=== PATIENT | male | born 1935 | race Caucasian/White ===

== ENCOUNTER → 2019-12-26 | Outpatient (CLI) | payer OTHER, BC ==
[~2019-12-26] MED LIST: ALEVE220 M1 PO; APAP500; ASPIRIN81 M2 PO; DILTIAZEM ER120 M1 PO; FENTANYL PA12 MCG/HR TP; GLUCOPHAGE1000 MG PO; IMDUR 60 MG TAB60 M1 PO; LANTUS SUBQ; LIPITOR10 MG PO; LYRICA 75 MG CA75 MG PO; NABUMETONE 500500 M1 PO; NOVOLOG100 UNIT/1 SQ; PLAVIX 75 MG TA75 M1 PO; ROXICODONE5 MG PO
== END ==
LOC: SJCVC 10:31
DX: I44.0 Atrioventricular block, first degree (principal); I25.810 Atherosclerosis of coronary artery bypass graft(s) without angina pectoris; E78.00 Pure hypercholesterolemia, unspecified; I10 Essential (primary) hypertension; I25.5 Ischemic cardiomyopathy; E11.9 Type 2 diabetes mellitus without complications; E78.5 Hyperlipidemia, unspecified; R60.9 Edema, unspecified; Z79.4 Long term (current) use of insulin; Z95.1 Presence of aortocoronary bypass graft; Z87.891 Personal history of nicotine dependence

== ENCOUNTER → 2020-01-08 | Outpatient (CLI) | payer OTHER, BC | LOC: SJCVCIMAG 13:12 | DX: I44.0 Atrioventricular block, first degree (principal); I25.10 Atherosclerotic heart disease of native coronary artery without angina pectoris; I42.9 Cardiomyopathy, unspecified; I10 Essential (primary) hypertension; E78.5 Hyperlipidemia, unspecified; E11.9 Type 2 diabetes mellitus without complications; Z79.4 Long term (current) use of insulin; Z87.891 Personal history of nicotine dependence; Z79.82 Long term (current) use of aspirin; Z79.899 Other long term (current) drug therapy ==

== ENCOUNTER → 2020-04-10 | Outpatient (CLI) | payer OTHER, BC | LOC: SJCVC 11:41 | DX: I44.0 Atrioventricular block, first degree (principal); I25.708 Atherosclerosis of coronary artery bypass graft(s), unspecified, with other forms of angina pectoris; E78.00 Pure hypercholesterolemia, unspecified; I25.5 Ischemic cardiomyopathy; R60.9 Edema, unspecified; I10 Essential (primary) hypertension ==

== ENCOUNTER 2020-05-29 00:55 | Inpatient (IN) | payer OTHER, BC ==
[~2020-05-29] VITALS: Ht 172.7 cm; Wt 92.9 kg
[2020-05-29 00:59] VITALS: BP 113/46
--- NOTE | 2020-05-29 01:40 | NUR ---
DIRECT ADMIT FROM [facility] IN [place]. PT PRESENTED WITH RECENT SYNCOPAL EPISODE, WEAKNESS, CHEST PAIN ON 05/27/20, INTERMITTENT FEVERS. TROPONIN ELEVATED AND WBC ELEVATED FROM [facility]. PT TRANSFERRED TO THE MEDICAL CENTER FOR CONTINUED CARE BY BENEFITS CLERK DR BE. PT LIVES AT HOME WITH OF A YEAR AND A HALF. PT REPORTED HX OF DEPRESSION ANXIETY NIGHTMARES, RELATED TO SERVICE IN [employer]. MEDICAL HX LEUKEMIA, HTN, GERDS, NEUROPATHY, CARDIAC SURGERY. AOX4, INDEPENDENT STEADY GAIT, LUNGS DIMINISHED. PT HAD CT HEAD AND ABD AND CHEST XRAY. PT RECEIVED 500MLS NS AT [facility]. PT ALSO HAD COVID NASAL SWAB DONE AT [facility]. PT VERBALIZED WILL CALL FOR ASSIST WITH AMBULATION.
[2020-05-29 01:46] VITALS: BP 108/44
[2020-05-29 01:47] VITALS: BP 95/46
[2020-05-29 02:10] LABS: CHOLESTEROL 94 mg/dL (<200); HDL CHOLESTEROL 22 mg/dL (>40); LDL CHOLESTEROL 58 mg/dL (<100); TC:HDL 4.3 Ratio (Not establshd); TRIGLYCERIDE 72 mg/dL (<150); VLDL 14 mg/dL (<40)
[2020-05-29 02:14] LABS: SERUM ASSESSMENT Clear
[2020-05-29] MEDS ORDERED: LEXAPRO20 MG PO (02:26)
[2020-05-29] MEDS ORDERED: LOSARTAN POTASSIUM PO (02:28)
[2020-05-29] MEDS ORDERED: VITAMIN D31250 MC1 PO (02:29)
--- NOTE | 2020-05-29 05:51 | NUR ---
CLARIFIED WITH PROVIDER WAITING ON COVID RESULTS FROM [facility] REPEAT TEST NOT NEEDED AT THIS TIME.
[2020-05-29 08:11] VITALS: BP 1430/49
[2020-05-29 08:12] LABS: URINE BILIRUBIN NEGATIVE (Negative); URINE BLOOD 2+ (Negative); URINE CLARITY CLOUDY; URINE COLOR YELLOW; URINE GLUCOSE-RANDOM* NEGATIVE (Negative); URINE KETONES NEGATIVE (Negative); URINE PROTEIN (DIPSTICK) 1+ (Negative); URINE SPECIFIC GRAVITY 1.015 (1.005-1.035); URINE UROBILINOGEN 0.2 E.U./dl (0.2-1.0)
[2020-05-29 08:24] LABS: URINE LEUKOCYTES-REFLEX 1+ (Negative); URINE NITRITE-REFLEX POSITIVE (Negative)
[2020-05-29 08:48] LABS: CASTS None Seen /LPF (None Seen); SQUAMOUS 0-3 Few /LPF (0-3)
[2020-05-29 08:49] LABS: AMORPHOUS URATES Moderate /LPF (None Seen); BACTERIA-REFLEX >30 Many /HPF (None Seen); URINE WBC-REFLEX >25 Many /HPF (0-5)
[2020-05-29 09:58] LABS: HEMATOCRIT 28.2 % (42.0-52.0); HEMOGLOBIN 9.4 gm/dL (14.0-18.0); MCH 33.8 pg (26.0-34.0); MCHC 33.4 g/dL (28.0-37.0); MCV 101.2 fL (80.0-100.0); RBC 2.79 mil/uL (4.50-6.00); RDW 16.5 % (10.5-14.5); WBC 35.5 thou/uL (4.0-11.0)
[2020-05-29 10:07] LABS: CALCIUM 8.1 mg/dL (8.5-10.1); CREATININE 1.2 mg/dL (0.7-1.3); POTASSIUM 4.7 mmol/L (3.5-5.1)
[2020-05-29 10:59] LABS: ABSOLUTE NEUTROPHILS 2.8 thou/uL (1.4-8.2); ATYPICAL LYMPHS 2 %; PLATELET COUNT 54 thou/uL (150-400)
--- NOTE | 2020-05-29 10:59 | EKG ---
[facility] Royce Kruger [facility] [address] ELECTROCARDIOGRAM REPORT Name: ELIZA LOERA Room #: 350-P ADM IN M.R.#: [id number] Admission: 05/29/20 Attend Phys: Rey Garzon MD Discharge: Date of : 39 Report #: [id number] THIS REPORT FOR: cc: Damion Castillo MD, Bradley MD Couchonnal, Luis F. MD ~ THIS REPORT FOR: //name// [facility] Test Date: 2020-05-29 Test Time: 08:45:48 Pat Name: ELIZA LOERA Department: Room: 350 P Gender: M Packing Clerk: VANESSA : 1935 Requested By: Gilma Dudley Order Number: [id number] MD: Juanpablo Gudino Measurements Intervals [place] Rate: 63 P: 66 CT: 225 QRS: 1 QRSD: 111 T: -5 QT: 440 QTc: 451 Interpretive Statements Sinus rhythm Prolonged CT interval Borderline T abnormalities, inferior leads No previous ECG available for comparison Electronically Signed On 05-29-2020 10:59:19 CDT by Juanpablo Gudino [email or web address] <ELECTRONICALLY SIGNED> By: Juanpablo Gudino MD 05/29/20 1059 0845 0845 Juanpablo Gudino MD /EPI
--- NOTE | 2020-05-29 12:12 | NUR ---
ASSUMED CARE APPROX 0700. PT ALERT AND ORIENTED X4. ASSESSMENT CHARTED AND VSS. PT REPORTED INTERMITTENT CHEST PAIN THIS AM. REPORTS RELIEF AFTER ONE DOSE OF NITROLYCERIN. SR/1DEGREE ON TELE MONITOR. ON ROOM AIR.
--- NOTE | 2020-05-29 16:52 | NUR ---
INITIAL ASSESSMENT: Received consult. SW reviewed chart and spoke with nursing and attending physician. Pt was transferred to [facility] from [facility]. Pt placed in Enhanced Isolation to r/o COVID-19. Pt's test is negative. SW spoke with pt via phone. Introduced role of SW. Pt is alert/orientated x 4. Pt reports he lives at home in a ground level apt with his . Prior to admission, pt was independent with ADLs. Pt does have a cane, but does not use it. No hx of services or post-acute placement. Pt's PCP is Dr. Damion Castillo. Pt's rough rounder is Dr. Reyes. Pt's goal is to return home when medically stable. SW is following to assist as needed with discharge planning.
[2020-05-29 19:16] VITALS: BP 116/31
[2020-05-29 23:37] LABS: ABSOLUTE RETIC COUNT 0.0246 10^6/uL; OBSERVED RETIC COUNT 0.96 % (0.6-2.6)
[2020-05-29 23:48] LABS: APTT 38.6 Seconds (24.5-32.8); INR 1.1; PROTIME 11.2 Seconds (9.3-11.4)
[2020-05-29 23:50] LABS: % SATURATION 5 % (20-39); IRON 12 ug/dL (65-175); TIBC 226 ug/dL (250-450)
[2020-05-29 23:57] VITALS: BP 118/78
[2020-05-30 00:05] LABS: ALBUMIN 2.7 g/dL (3.4-5.0); DIRECT BILIRUBIN 0.1 mg/dL (<0.1-0.2); TOTAL BILIRUBIN 0.5 mg/dL (0.2-1.0); TOTAL PROTEIN 5.3 g/dL (6.4-8.2)
[2020-05-30 00:06] LABS: GLYCOHEMOGLOBIN (HGB A1C) 6.4 % (4.8-5.6)
[2020-05-30 00:40] LABS: FERRITIN < 1.0 ng/mL (26-388); FOLIC ACID 8.2 ng/mL (8.6-58.9)
[2020-05-30 03:58] VITALS: BP 136/72
--- NOTE | 2020-05-30 04:12 | NUR ---
Patient making slow progress towards outcome goals. Febrile,, treated with Tylenol with some relief. Blood cultures done. IVfluids infusing. Zosyn started. COVID negative x2, Dr Zack Osman aware. Oxygenation optimal on roomair.
[2020-05-30 05:52] LABS: HEMATOCRIT 28.5 % (42.0-52.0); HEMOGLOBIN 9.5 gm/dL (14.0-18.0); MCH 33.3 pg (26.0-34.0); MCHC 33.3 g/dL (28.0-37.0); MCV 100.1 fL (80.0-100.0); PLATELET COUNT 59 thou/uL (150-400); RBC 2.85 mil/uL (4.50-6.00); RDW 16.5 % (10.5-14.5); WBC 39.2 thou/uL (4.0-11.0)
[2020-05-30 06:02] LABS: CALCIUM 8.1 mg/dL (8.5-10.1); CREATININE 1.3 mg/dL (0.7-1.3); MAGNESIUM 1.9 mg/dL (1.8-2.4); POTASSIUM 4.6 mmol/L (3.5-5.1); TROPONIN-I 0.12 ng/mL (<0.06)
[2020-05-30 07:00] VITALS: BP 127/56
[2020-05-30 08:13] LABS: ABSOLUTE NEUTROPHILS 2.7 thou/uL (1.4-8.2)
[2020-05-30 08:14] LABS: PLATELET ESTIMATE DECREASED
--- NOTE | 2020-05-30 11:15 | 2DMMODE ---
[facility] [address] [place] [address] 2 D/M-MODE ECHOCARDIOGRAM Name: ELIZA LOERA Nani Room #: 350-P ADM IN M.R.#: [id number] Admission: 05/29/20 Attend Phys: Rey Garzon MD Discharge: Date of : 37 Report #: [id number] THIS REPORT FOR: cc: Damion Castillo MD, Bradley MD Lammoglia, Francisco J. MD ~ APPROVED REPORT Study performed: 05/30/2020 10:22:17 EXAM: Comprehensive 2D, Doppler, and color-flow Echocardiogram Patient Location: Bedside Room #: 350 Status: routine BSA: 2.04 HR: 60 bpm BP: 127/56 mmHg Rhythm: NSR Other Information Study Quality: Good Indications Syncope, elevated troponin. 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 2D Dimensions RVDd: 44.62 mm IVSd: 10.11 (7-11mm) LVOT Diam: 20.52 (18-24mm) LVDd: 57.42 mm PWd: 9.91 (7-11mm) Ascending Ao: 33.69 (22-36mm) LVDs: 43.08 (25-40mm) Aortic Root: 32.18 mm Volumes Left Atrial Volume (Systole) Single Plane 4CH: 74.07 mL Single Plane 2CH: 76.67 mL LA ESV Index: 42.00 mL/m2 Aortic Valve AoV Peak Сергей.: 2.19 m/s AO Peak Gr.: 19.24 mmHg LVOT Max P.45 mmHg AO Mean Gr.: 11.04 mmHg AO V2 Mean: 1.58 m/s LVOT Max V: 1.05 m/s [facility] [address] [place] [address] 2 D/M-MODE ECHOCARDIOGRAM Name: EVARISTOELIZA L Room #: 350-[facility] IN [facility].#: [id number] Admission: 05/29/20 Attend Phys: Rey Garzon, Discharge: Date of : 37 Report #: [id number] AO V2 VTI: 58.30 cm VERONICA Vmax: 1.59 cm2 Mitral Valve E/A Ratio: 1.8 MV Decel. Time: 154.64 ms MV E Max Сергей.: 1.34 m/s MV A Сергей.: 0.74 m/s MV PHT: 44.85 ms IVRT: 55.36 ms Pulmonary Valve PV Peak Сергей.: 1.42 m/s PV Peak Gr.: 8.08 mmHg Pulmonary Vein P Vein S: 0.56 m/s P Vein D: 0.92 m/s P Vein S/D Ratio: 0.61 Tricuspid Valve TR Peak Сергей.: 2.93 m/s RAP Estimate: 5.00 mmHg TR Peak Gr.: 34.23 mmHg PA Pressure: 39.00 mmHg Left Ventricle The left ventricle is normal size. There is normal left ventricular wall thickness. Left ventricular systolic function is low normal. LVEF is 50%. Right Ventricle Right ventricle is mildly dilated. The right ventricular systolic function is normal. Atria Left atrium is moderately dilated. Right atrium is moderately dilated. Aortic Valve The aortic valve is normal in structure. Leaflets are mildly thickened and calcified. Trace aortic regurgitation. There is mild valvular aortic stenosis. Calculated aortic valve area is 1.6 cm2 with maximum pressure gradient of 19 mmHg and mean pressure gradient of 11 mmHg. Mitral Valve The mitral valve is normal in structure. Mild mitral regurgitation. [facility] [address] [place] [address] 2 D/M-MODE ECHOCARDIOGRAM Name: ELIZA LOERA Room #: 350-P [facility] IN ..#: [id number] Admission: 05/29/20 Attend Phys: Rey Garzon, Discharge: Date of : 37 Report #: [id number] No evidence of mitral valve stenosis. Tricuspid Valve The tricuspid valve is normal in structure. Mild to moderate tricuspid regurgitation. Estimated PAP is 40mmHg. Pulmonic Valve The pulmonary valve is normal in structure. Mild pulmonic regurgitation. Great Vessels The aortic root is normal in size. The ascending aorta is normal in size. IVC is normal in size and collapses >50% with inspiration. Pericardium There is no pericardial effusion. <Conclusion> The left ventricle is normal size. LVEF is 50%. Right ventricle is mildly dilated. Left atrium is moderately dilated. Right atrium is moderately dilated. The aortic valve is normal in structure. Leaflets are mildly thickened and calcified. Trace aortic regurgitation. There is mild valvular aortic stenosis. Calculated aortic valve area is 1.6 cm2 with maximum pressure gradient of 19 mmHg and mean pressure gradient of 11 mmHg. The mitral valve is normal in structure. Mild mitral regurgitation. The tricuspid valve is normal in structure. Mild to moderate tricuspid regurgitation. Estimated PAP is 40mmHg. The pulmonary valve is normal in structure. Mild pulmonic regurgitation. There is no pericardial effusion. <ELECTRONICALLY SIGNED> By: Yan Nick MD 05/30/20 1115 1115 1115 Yan Nick MD /INF
--- NOTE | 2020-05-30 14:39 | NUR ---
SW reviewed chart and spoke with attending physician. Pt has had two negative COVID-19 test. Pt to transfer to med/surg level of care when a bed is available. GI consulted due to anemia. Pt to have colonoscopy on Tuesday, per chart. SW requested therapy to be ordered to evaluate pt for discharge needs. LD is following to assist as needed with discharge planning.
[2020-05-30 16:11] VITALS: BP 118/49
--- NOTE | 2020-05-30 19:41 | NUR ---
Pt transfered to unit per around 1530 in stable condition.Reassessment completed.vss but oanh on telemetry.Pt tolerated dinner.No verbal c/o.Will continue to monitor.
[2020-05-30 20:22] VITALS: BP 127/49
--- NOTE | 2020-05-30 21:37 | HC ---
[facility] [place] [address] CONSULTATION Name: ELIZA LOERA Room #: 460-P ADM IN M.R.#: [id number] Admission: 05/29/20 Attend Phys: Rey Garzon MD Discharge: Date of : 37 Report #: [id number] THIS REPORT FOR: cc: Damion Castillo MD, Bradley MD McKittrick, Richard James MD ~ CC: Damion Burger MD REASON FOR CONSULTATION: CLL, anemia and thrombocytopenia. HISTORY OF PRESENT ILLNESS: The patient is a very pleasant 84-year-old gentleman from [facility], who had about a 2-day history of fever, feeling poorly, nausea, vomiting, then had what appeared to be a syncopal episode at home, was brought rigid to the [facility]'s ER in the community. There was a question about whether he might have gallstones and also chest pain. 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 With regards to his CLL, the patient says he has been aware of this for several years. Dr. Burger, [facility] what sounds like Imbruvica in early 2019, but held once the Coronavirus pandemic began. He seems to think or be aware that his platelets were slightly low. He thinks they may be in about 55-60 range at the ER here. He is not aware of any lymph node enlargement in the past. He has not had any unexplained fevers, chills or sweats until the last 2 days. The patient denies any unusual headache. He does not have any mouth sores, swallowing difficulty. No real more breathing trouble than usual. He is not aware of any lymph nodes or any skin rash. He is not aware of any blood in his urine or stool. They have not been black and tarry. He does not think he has ever had a colonoscopy. He may have had an EGD a number of years ago. His diet, he maybe has red meat such as beef maybe once a week, but is mostly a fish and chicken person. He has not been told that he is iron deficient. He tells me his weight has been stable. PAST MEDICAL AND SURGICAL HISTORY: Notable for the CLL history. Also coronary artery disease, I believe he has had a stent in the past. Also, diabetes mellitus type 2, obstructive sleep apnea. Also, left heel fracture, cataract surgery, retinal surgery. [facility] [address] [place] [address] CONSULTATION Name: ELIZA LOERA Nani Room #: 460-P [facility] IN M.R.#: [id number] Admission: 05/29/20 Attend Phys: Rey Garzon MD Discharge: Date of : 37 Report #: [id number] FAMILY HISTORY: No one with blood disorders. SOCIAL HISTORY: Retired. Past smoker. Minimal to no alcohol. 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 MEDICATIONS: At this time currently include folic acid which I added. He is also on Zosyn 3.375 g IV q. 8, insulin, Lovenox 40 mg at bedtime, losartan 50 mg on hold, diltiazem CD 120 mg on hold, escitalopram 20 mg daily, aspirin enteric coated 81 mg daily, isosorbide mononitrate 60 mg daily, clopidogrel 75 mg daily, famotidine 40 mg daily, insulin on a sliding scale, IV fluids, morphine p.r.n., nitroglycerin p.r.n., MiraLax p.r.n., Tylenol p.r.n. and Zofran p.r.n. PHYSICAL EXAMINATION: GENERAL: The patient appears his stated age. VITAL SIGNS: Height is 5 feet 8 inches, 172.7 cm; weight 204.8 pounds or 92.9 kilograms. T-max here at the hospital is 101.6 yesterday at 7:16. Recent blood pressure 127/56, O2 sats 96%, respirations 16, pulse 54, temperature 98.9. MOOD: He is alert and conversant and pleasant. NEUROLOGIC: Speech and thought pattern appear to be normal. Moving arms and legs in normal manner. LYMPHATICS: No enlarged lymph nodes in the supraclavicular, cervical, axillary or inguinal region. ABDOMEN: Obese. No definite organomegaly. EXTREMITIES: Without clubbing, cyanosis. There may be some trace edema. LABORATORY DATA: Here at the hospital shows a BUN of 29, creatinine of 1.3. Liver functions normal with an AST of 19, ALT of 21, total bilirubin 0.1. Iron 12, low; TIBC 266, low; iron saturation 5%, low; INR 1.1 with protime 11.2; APTT 38.6. White count 39.2; hemoglobin 9.5; MCV 100.1; RDW 16.5, slightly elevated;, platelets 54,000 and 59,000 today, were similar at [facility]. Differential has 2% bands, 5% segmented neutrophils, 92% lymphocytes, no monocytes, 1% eosinophils. Yesterday, they had 2 atypical lymphocytes. Retic count showed absolute retic 0.0246, which is decreased; TSH normal 2.271; ferritin less than 1; folate 8.2, low; vitamin B12 of 263, lower end of normal. UA had 2+ blood, positive for nitrite, had greater than 25 wbc's, greater than 30 or many bacteria. IMAGING: Chest x-ray ordered, ultrasound carotid ordered, abdominal ultrasound ordered. CAT scan from [facility]' ER did not reveal any lymphadenopathy or hepatosplenomegaly. It did raise a question of thickened gallbladder if I recall and also perhaps thickened urinary bladder wall. ASSESSMENT AND PLAN: 1. Chronic lymphocytic leukemia, appears to not be a new diagnosis. Has only needed therapy for a brief while, then was held because of COVID pandemic. Had been on Imbruvica. It sounds like platelets were stable. Will try to get [facility] [address] [place] [address] CONSULTATION Name: EVARISTOELIZA Nani Room #: 460-P [facility] IN M.R.#: [id number] Admission: 05/29/20 Attend Phys: Rey Garzon MD Discharge: Date of : 37 Report #: [id number] records from [facility] and Dr. Reyes's office. 2. Severe iron deficiency anemia. We will arrange for Hemoccult stool. We will consult GI to see what they think of possible future endoscopies. Will also provide IV iron. Defer to others whether to hold or continue clopidogrel at this time. 3. Thrombocytopenia, sounds stable. Coags basically stable. I doubt disseminated intravascular coagulation. APTT slight elevation, probably not clinically significant. No obvious bleeding noted. We will Hemoccult stool. 4. Coronary artery disease with questionable angina. Defer to Cardiology team evaluation. 5. Febrile illness. Dr. Ebenezer Osman will see the patient. Unclear whether source is UA or possible gallbladder. Doubt it is related to chronic lymphocytic leukemia or underlying malignancy. 6. History of diabetes type 2. Management per others. 7. Obstructive sleep apnea history. Management per others. <ELECTRONICALLY SIGNED> By: Fady Rodriguez MD 05/30/20 2137 0839 1052 Fady Rodriguez MD /nt
--- NOTE | 2020-05-31 07:56 | NUR ---
PROGRESS PT A/O X 4 UP AD PAWEL DENIES PAIN ANTIBIOTICS GIVEN ORDERED. SKIN C/D/I PT TOOK SHOWER HAS ADEQAUTE INTAKE AND OUTPUT VSS CONTINUE POC.
[2020-05-31 09:30] VITALS: BP 140/62
[2020-05-31 11:30] LABS: HEMOGLOBIN 9.4 gm/dL (14.0-18.0)
[2020-05-31 11:32] LABS: HEMATOCRIT 28.3 % (42.0-52.0); MCH 33.2 pg (26.0-34.0); MCHC 33.1 g/dL (28.0-37.0); MCV 100.2 fL (80.0-100.0); RBC 2.82 mil/uL (4.50-6.00); RDW 16.5 % (10.5-14.5)
[2020-05-31 11:38] LABS: WBC 46.2 thou/uL (4.0-11.0)
[2020-05-31 11:50] LABS: CALCIUM 7.9 mg/dL (8.5-10.1); CREATININE 1.1 mg/dL (0.7-1.3); MAGNESIUM 2.1 mg/dL (1.8-2.4); POTASSIUM 3.8 mmol/L (3.5-5.1); TOTAL BILIRUBIN 0.5 mg/dL (0.2-1.0)
[2020-05-31 16:17] VITALS: BP 108/51
--- NOTE | 2020-05-31 16:19 | NUR ---
Assumed care of pt. at 0700. Pt. has presented with sinus bradycardia the majority of the shift. When he began to lay down and nap in the afternoon his HR dropped to 47 and the physician was notified, no orders received. Pt. was not in distress and all other vitals were WNL. Fall precautions are in place. Pt. critical value of WBC 42.6 was reported at 1139 and reported to physician, no orders received. Pt. complains of decreased energy but remains active and mobile when possible. Pt. has not been in pain for the duration of the shift.
[2020-05-31 17:55] VITALS: BP 144/65
[2020-05-31 20:00] VITALS: BP 125/52
--- NOTE | 2020-06-01 04:03 | NUR ---
ASSUMED CARE OF PT AT 1900HRS. PT AOX4 AND LETS NEEDS BE KNOWN. PT DENIED PAIN, NAUSEA OR SOA. ASSESMENT CHARTED. ABX TREATMENT CONTINUED. PT WAS ABLE TO GET COMFORTABLE AND SLEEP PART OF THE SHIFT. VSS AND NO S/S OF ACUTE DISTRESS. WILL CONTINUE TO MONTIOR FOR CHANGES.
[2020-06-01 04:22] VITALS: BP 130/49
[2020-06-01 05:44] LABS: HEMATOCRIT 27.5 % (42.0-52.0); HEMOGLOBIN 9.2 gm/dL (14.0-18.0); MCH 33.8 pg (26.0-34.0); MCHC 33.5 g/dL (28.0-37.0); MCV 100.9 fL (80.0-100.0); RBC 2.73 mil/uL (4.50-6.00); RDW 16.8 % (10.5-14.5)
[2020-06-01 05:49] LABS: WBC 42.4 thou/uL (4.0-11.0)
[2020-06-01 05:58] LABS: CALCIUM 7.9 mg/dL (8.5-10.1); POTASSIUM 3.9 mmol/L (3.5-5.1)
[2020-06-01 07:40] VITALS: BP 141/59
--- NOTE | 2020-06-01 11:40 | NUR ---
ASSUMED CARE AT 0700. PT IS ALERT AND ORIENTED. NO COMPLAINTS. VSSA/RA. ON TELE WITH CARDIAC HX AND BRADYCARDIA. CLEAR DIET. TOLERATING. BLOOD SUGARS MONITORED. PIV INFUSING. PT IS UAL, STEADY ON FEET. REFUSES BED ALARM AND ASSISTANCE. EDUCATED PT ON CALLING IF NEEDED AND SAFETY. CALL LIGHT IN REACH. WILL CONTINUE TO MONITOR
[2020-06-01 16:05] VITALS: BP 129/54
[2020-06-01 20:08] VITALS: BP 132/51
--- NOTE | 2020-06-02 02:39 | NUR ---
PATIENT ALERT AND ORIENTED X4. BS MONITORED PER ORDER. PATIENT FINISHED PREP FOR EGD/COLONOSCOPY TODAY. UP TO BATHROOM INDEPENDENTLY. SEVERAL LOOSE STOOLS, NOT CLEAR AT THIS TIME, WILL MONITOR. DENIES PAIN. IVF INFUSING W/O COMPLICATION. PATIENT HAS BEEN NPO SINCE 2358 ON 06/01/2020. RESTING QUIETLY.
[2020-06-02 05:13] LABS: HEMOGLOBIN 8.5 gm/dL (14.0-18.0); RBC 2.58 mil/uL (4.50-6.00)
[2020-06-02 05:14] LABS: MCH 32.9 pg (26.0-34.0); MCHC 32.6 g/dL (28.0-37.0); MCV 101.1 fL (80.0-100.0); RDW 16.6 % (10.5-14.5)
[2020-06-02 05:39] LABS: CREATININE 0.9 mg/dL (0.7-1.3); POTASSIUM 3.3 mmol/L (3.5-5.1)
[2020-06-02 08:42] VITALS: BP 145/63
--- NOTE | 2020-06-02 11:57 | NUR ---
PT TO HAVE EGD AND COLONOSCOPY THIS DAY. CARDIOLOGY MENTIONINED POSSIBLE LOOP RECORDER TO BE IMPLANTED TOMORROW IF OK'D BY FAMILY. CM TO FOLLOW INDICATED WITH DC PLANNING.
--- NOTE | 2020-06-02 14:42 | NUR ---
ASSUMED CARES AT 0700. PT AWAKE, ALERT AND ORIENTED*4. DENIES PAIN. VITALS REMAIN STABLE. BRADYCARDIA ON TELE, HR 50-60'S. PT NPO THIS AM, WENT FOR EGD & COLONOSCOPY, UPON RETURN DENIES N&V AND VITALS REMAIN STABLE. ABLE TO RESUME CARB CONTROL DIET AT LUNCH TIME AND TOLERATED WELL. IV ON RIGHT AC REMAINS INTACT AND PATENT, NS AT 75ML/HR AND ANTIBIOTICS INFUSING ORDERED. UPADLIB. Q1H VISUAL CHECKS. CALL LIGHT WITHIN REACH.
[2020-06-02 15:30] VITALS: BP 118/51
[2020-06-02 19:38] VITALS: BP 132/49
--- NOTE | 2020-06-03 02:31 | NUR ---
ASSESSED AT START OF SHIFT 1900. PT A&OX4 DENIES PAIN, N/V. UP ADLIB IN THE ROOM AND HALLWAY. IV INTACT AND ABX GIVEN. PT RUNS SINUS GUI ON TELE 40-45. NO FURTHER SIGNS OF DISCOMFORT WILL CONT WITH POC TILL EOS
[2020-06-03 05:48] LABS: HEMOGLOBIN 8.3 gm/dL (14.0-18.0)
[2020-06-03 05:51] LABS: HEMATOCRIT 25.5 % (42.0-52.0); MCH 32.9 pg (26.0-34.0); MCHC 32.6 g/dL (28.0-37.0); MCV 101.1 fL (80.0-100.0); RBC 2.52 mil/uL (4.50-6.00); RDW 16.9 % (10.5-14.5)
[2020-06-03 06:25] LABS: WBC 41.8 thou/uL (4.0-11.0)
[2020-06-03 06:35] LABS: CALCIUM 7.6 mg/dL (8.5-10.1); CREATININE 0.9 mg/dL (0.7-1.3); MAGNESIUM 2.1 mg/dL (1.8-2.4); POTASSIUM 3.7 mmol/L (3.5-5.1)
[2020-06-03 07:47] VITALS: BP 122/59
--- NOTE | 2020-06-03 10:34 | NUR ---
Assumed care of pt. at 0700. Pt. is calm and cooperative. Pt. is excited for discharge. Vitals are all WNL and is still SR Bradycardia.
[2020-06-03] MEDS ORDERED: AMOXIL 875 MG875 M1 PO (13:48)
[2020-06-03] MEDS ORDERED: FERROUS SULFAT325 MG PO (13:52)
[2020-06-03 14:24] VITALS: BP 122/59
[2020-06-03 14:32] VITALS: BP 144/69
--- NOTE | 2020-06-03 15:37 | NUR ---
CARE TEAM INDICATED THAT PT IS MEDICALLY STABLE TO DC HOME THIS DAY TO SELF CARE. NO OTHER CM INTERVENTION INDICATED. CASE CLOSED.
--- NOTE | 2020-06-03 16:06 | PATH ---
[facility] [place] [address] PATHOLOGY RPT PROCEDURE Name: ARMANI KAURYOHANNES Cardoza Room #: 460-P [facility] IN M.R.#: [id number] Admission: 05/29/20 Date of : 39 Discharge: 06/03/20 Report #: [id number] Path Case #: [id number] [facility] Accession Number: [id number] . 01 Material submitted: . PART A: duodenum - BX OF DUODENUM PART B: sigmoid colon - POLYP AT SIGMOID COLON X3 . 01 Clinical history: . anemia . 02 Diagnosis: A. Small bowel mucosa, duodenum rule out sprue: - No diagnostic abnormalities present. - Negative for villous blunting or increase in intraepithelial lymphocytes. . B. Polyp x3, sigmoid colon, endoscopic biopsy: - Tubular adenoma. - Negative for high grade dysplasia. . (IUV:mml; 06/03/2020) QL 06/03/2020 1336 Local . 02 Electronically signed: . Mery Brady MD, Pathologist NPI- [id number] . 01 Gross description: . A. The specimen is received in formalin labeled "Eliza Kaur, BX of duodenum to rule out sprue" and consists of 2 fragments of stallings tissue measuring 0.8 x 0.2 x 0.2 cm in aggregate which are entirely submitted in A1. . B. The specimen is received in formalin labeled "Eliza Kaur, polyp at sigmoid colon x3" and consists of multiple polypoid segments of pink-stallings tissue measuring 1.3 x 0.6 x 0.3 cm in aggregate which are entirely submitted in B1. ([facility]; 06/02/2020) DARYLQ/DAV 06/02/2020 2139 Local . 02 Pathologist provided ICD-10: D12.5, D64.9 . 02 CPT . 619733, 712244 Specimen Comment: A courtesy copy of this report has been sent to [phone] [address] PATHOLOGY RPT PROCEDURE Name: ELIZA KAUR Nani Room #: 460-P [facility] IN .R.#: [id number] Admission: 05/29/20 Date of : 39 Discharge: 06/03/20 Report #: [id number] Path Case #: [id number] Specimen Comment: 0827, Specimen Comment: Report sent to ,DR DEMARCO / DR CARVER Specimen Comment: A duplicate report has been generated due to demographic updates. Performed at: [address], [place], [place] [id number] MD Carlin Olivera MD Phone: [phone] Performed at: [address] [id number] MD Mery Brady MD Phone: [phone]
--- NOTE | 2020-06-04 11:50 | P ---
[facility] [place] [address] PROCEDURE REPORT Name: ELIZA LOERA Room #: 460-P [facility] IN ..#: [id number] Admission: 05/29/20 Attend Phys: Rey Garzon MD Discharge: 06/03/20 Date of : 37 Report #: [id number] THIS REPORT FOR: cc: Damion Castillo MD, Bradley MD McElhinney, Christian C. MD ~ CC: Damion Garzon MD DATE OF SERVICE: 06/02/2020 PROCEDURE PERFORMED: Upper endoscopy with biopsies. HISTORY OF PRESENT ILLNESS: The patient is an 84-year-old male with a history of iron deficiency anemia. Stools have been Hemoccult negative x 1. The patient has previously been on aspirin and Plavix. This has been held for the last few days. He also takes PPI therapy on a daily basis. No previous history of colonoscopy, upper endoscopy approximately 20 years ago. Denies any GI symptoms at this time. Plan is for EGD and colonoscopy today. DESCRIPTION OF PROCEDURE: The risks and benefits of the procedure were explained to the patient, those risks including but not limited to bleeding, perforation and the risk of sedation. He understood these risks and gave informed consent. Sedation was given using propofol per anesthesia. Next, using a standard Olympus upper endoscope, the scope was placed in the patient's mouth and advanced under direct vision through the esophagus, stomach and into the second portion of the duodenum. The larynx was normal in appearance. The upper and mid esophagus was normal. In the distal esophagus at the GE junction, grade A mild erosive esophagitis was noted. No evidence of bleeding. Overall, the gastric mucosa was normal. The pylorus was normal and patent. The duodenal bulb, first and second portion were all normal. Biopsies were obtained to rule out the possibility of celiac sprue. The scope was then withdrawn and the procedure terminated. The patient tolerated the procedure well. IMPRESSION: 1. Grade A erosive esophagitis. 2. Otherwise, normal upper endoscopy. RECOMMENDATIONS: 1. Await biopsy results. 2. Recommend b.i.d. PPI therapy. 3. We will proceed with colonoscopy next today. [facility] [address] [place] [address] PROCEDURE REPORT Name: ELIZA LOERA Nani Room #: 460-P [facility] IN .R.#: [id number] Admission: 05/29/20 Attend Phys: Rey Garzon MD Discharge: 06/03/20 Date of : 39 Report #: [id number] Thank you for allowing me to participate in his care. <ELECTRONICALLY SIGNED> By: Romulo Sheppard MD 06/04/20 1150 1139 1146 Romulo Sheppard MD /nt
--- NOTE | 2020-06-04 11:50 | P ---
[facility] [place] [address] PROCEDURE REPORT Name: ELIZA LOERA Room #: 460-P [facility] [place] [place] ..#: [id number] Admission: 05/29/20 Attend Phys: Rey Garzon MD Discharge: 06/03/20 Date of : 39 Report #: [id number] THIS REPORT FOR: cc: Damion Castillo MD, Bradley MD McElhinney, Christian C. MD ~ CC: Damion Garzon MD DATE OF SERVICE: 06/02/2020 PROCEDURE PERFORMED: Colonoscopy with polypectomies. HISTORY OF PRESENT ILLNESS: The patient is an 84-year-old male with iron deficiency anemia, recent generalized weakness. No previous history of colonoscopy. Hemoglobin has been in the 8-1/2-9 range, most recent today at 8.5. He was Hemoccult negative x 1 during this hospital stay. Previous history of aspirin and Plavix, was also on PPI therapy once a day. Upper endoscopy was just performed showing mild grade A erosive esophagitis. No evidence of bleeding. Plan is for colonoscopy next today. DESCRIPTION OF PROCEDURE: The risks and benefits of the procedure were explained to the patient, those risks including but not limited to bleeding, perforation and the risk of sedation. He understood these risks and gave informed consent. Sedation was given using propofol per anesthesia. Next, a digital rectal exam was initially performed, which was normal. Next, using a standard Olympus colonoscope, the scope was placed in the patient's anus and advanced under direct vision to the cecum. The overall prep was good. The cecum and ileocecal valve were normal in appearance. The ascending, transverse and descending colon were normal. Multiple small diverticula were noted in the sigmoid colon. Also noted were 3 polyps, the two larger polyps were 6 and 8 mm, both removed by snare cautery. The smallest polyp was 4 mm and removed by cold forceps. The rectal mucosa was normal. On retroflexion, no abnormalities were noted. The scope was then withdrawn and the procedure terminated. The patient tolerated the procedure well. IMPRESSION: 1. Three colonic polyps. 2. Sigmoid diverticulosis. 3. Otherwise, normal colonoscopy. RECOMMENDATIONS: 1. Await biopsy results. 2. The patient with a history of iron deficiency anemia, Hemoccult negative x [address] [address] PROCEDURE REPORT Name: ELIZA LOERA Nani Room #: 460-P [facility] [place] ..#: [id number] Admission: 05/29/20 Attend Phys: Rey Garzon MD Discharge: 06/03/20 Date of : 39 Report #: [id number] during this hospital stay. There was no evidence of bleeding on exam today on EGD or colonoscopy. The patient did have mild grade A erosive esophagitis. We will therefore increase his PPI therapy to b.i.d. for now, would consider oral iron therapy. If he does not respond to this, consider IV iron therapy in the future. Thank you for allowing me to participate in his care. <ELECTRONICALLY SIGNED> By: Romulo Sheppard MD 06/04/20 1150 1143 1200 Romulo Sheppard MD /nt
--- NOTE | 2020-06-04 15:23 | HC ---
[facility] [place] [address] CONSULTATION Name: ELIZA LOERA Room #: 460-P [facility] IN ..#: [id number] Admission: 05/29/20 Attend Phys: Rey Garzon MD Discharge: 06/03/20 Date of : 39 Report #: [id number] THIS REPORT FOR: cc: Damion Castillo MD, Bradley MD Elia, Manana MD ~ CC: Damion Garzon DATE OF SERVICE: 06/02/2020 SUBJECTIVE: The patient is doing well. He is undergoing iron infusion. Does not have any complaints of shortness of breath, rash. OBJECTIVE: VITAL SIGNS: Blood pressure 111/51, heart rate is 52, temperature 98.8. GENERAL: Alert and oriented x 3. SKIN: No rash. LUNGS: No tachypnea. LABORATORY DATA: White count 45.0, hemoglobin 8.5, platelets 102. ASSESSMENT AND PLAN: 1. Chronic lymphocytic leukemia. Continue followup with Dr. Burger. No indications. No intervention at this point. 2. Anemia, undergoing iron infusion per ____ and tolerating well. <ELECTRONICALLY SIGNED> By: Yoselin Alvarenga MD 06/04/20 1523 [id number] Yoselin Alvarenga MD /nt
== END 2020-06-03 15:44 | disposition home or self-care (01) | DRG 871 ==
LOC: 3W 00:55 → 4W 05-30 15:20
PROVIDERS: Internal Medicine Hematology & Oncology; Nurse Practitioner Adult Health; Nurse Practitioner Family; ADMIT Internal Medicine; ATTEND Internal Medicine
PROC: 0DB98ZX Excision of Duodenum, Via Natural or Artificial Opening Endoscopic, Diagnostic (ICD-10-PCS; principal; 2020-06-02)
PROC: 0DBN8ZZ Excision of Sigmoid Colon, Via Natural or Artificial Opening Endoscopic (ICD-10-PCS; principal; 2020-06-02)
DX: A41.51 Sepsis due to Escherichia coli [E. coli] (principal); E43 Unspecified severe protein-calorie malnutrition; N17.0 Acute kidney failure with tubular necrosis; C91.10 Chronic lymphocytic leukemia of B-cell type not having achieved remission; K22.10 Ulcer of esophagus without bleeding; N39.0 Urinary tract infection, site not specified; K80.20 Calculus of gallbladder without cholecystitis without obstruction; D50.9 Iron deficiency anemia, unspecified; Z20.828 Contact with and (suspected) exposure to other viral communicable diseases; I25.10 Atherosclerotic heart disease of native coronary artery without angina pectoris; G47.33 Obstructive sleep apnea (adult) (pediatric); E11.9 Type 2 diabetes mellitus without complications; D69.6 Thrombocytopenia, unspecified; K63.5 Polyp of colon; K57.30 Diverticulosis of large intestine without perforation or abscess without bleeding; I25.5 Ischemic cardiomyopathy; F41.9 Anxiety disorder, unspecified; E78.00 Pure hypercholesterolemia, unspecified; E78.5 Hyperlipidemia, unspecified; I08.1 Rheumatic disorders of both mitral and tricuspid valves; E53.8 Deficiency of other specified B group vitamins; G47.00 Insomnia, unspecified; E55.9 Vitamin D deficiency, unspecified; I10 Essential (primary) hypertension; E86.0 Dehydration; N40.0 Benign prostatic hyperplasia without lower urinary tract symptoms; Z95.1 Presence of aortocoronary bypass graft; Z79.899 Other long term (current) drug therapy; Z95.5 Presence of coronary angioplasty implant and graft; Z98.49 Cataract extraction status, unspecified eye; Z87.891 Personal history of nicotine dependence; Z82.49 Family history of ischemic heart disease and other diseases of the circulatory system; Z80.0 Family history of malignant neoplasm of digestive organs; Z79.82 Long term (current) use of aspirin; K21.0 Gastro-esophageal reflux disease with esophagitis
CPT/HCPCS: 10045; 10879; 62110; 62900; 70005

== ENCOUNTER → 2020-11-05 | Outpatient (CLI) | payer OTHER, BC ==
[~2020-11-05] VITALS: Ht 172.7 cm; Wt 94.3 kg
[~2020-11-05] MED LIST changes: +AMOXIL 875 MG875 M1 PO; +FERROUS SULFAT325 MG PO; +LEXAPRO20 MG PO; +LOSARTAN POTASSIUM PO; +VITAMIN D31250 MC1 PO
[2020-11-05 08:42] VITALS: BP 117/57
[2020-11-05 08:59] LABS: HEMATOCRIT 34.2 % (42.0-52.0); MCH 33.8 pg (26.0-34.0); MCHC 32.1 g/dL (28.0-37.0); MCV 105.1 fL (80.0-100.0); RBC 3.25 mil/uL (4.50-6.00); RDW 15.5 % (10.5-14.5)
[2020-11-05 09:00] LABS: CALCIUM 8.7 mg/dL (8.5-10.1); POTASSIUM 5.2 mmol/L (3.5-5.1)
[2020-11-05 09:03] LABS: WBC 68.1 thou/uL (4.0-11.0)
--- NOTE | 2020-11-05 11:41 | CATHLAB ---
[facility] [place] [address] INVASIVE PROCEDURE REPORT Name: ELIZA LOERA Room #: REG LESLY MalloyCintiaKirtiCintia#: [id number] Admission: 11/05/20 Attend Phys: Jose Reyes MD, Discharge: Date of : 39 Report #: [id number] THIS REPORT FOR: cc: Damion Castillo MD, Bradley MD Mancuso, Gerald M. MD [facility] ~ APPROVED REPORT Study performed: 11/05/2020 09:31:46 Patient Details Patient Status: Out-Patient Room #: The patient is a 85 year-old male Event Personnel Jose Reyes Pharmacy Informatics Specialist, Maikol Jung RN RN, Trixie Kaba RTR, Anil Dominguez Roberta Monitor Procedures Performed Art Access - R femoral artery* Left Heart Cath Coronaries, Bypass Grafts [id number] LHCCORCABG Aortogram Abdominal Peripheral Angio [id number] 27201 Initial Mod Sed Same Phys/QHP Gr 208237 50689 Mod Sed Same Phys/QHP Ea 555378 Hemostasis w/ Mynx Indication Positive stress test Procedure Narrative The Right Groin^ was infiltrated with 1% Lidocaine subcutaneous anesthesia. A PINNACLE 6FR Sheath #[id number] sheath was inserted into the RFA^. Coronary angiography was performed using coronary diagnostic catheters. The right coronary system was accessed and visualized with a JR4 catheter. The left coronary system was accessed and visualized with a JL4 catheter. The left ventricle was accessed and visualized with a Pigtail catheter. Left ventriculogram was performed in 30 degree projection. Closure device was deployed with a 6 Fr MYNXGRIP 6/7F #[id number]. The patient tolerated the procedure well and there were no complications associated with the procedure. There was no hematoma. Intraoperative Conscious Sedation Sedation start time: 10:00 Case end Time: 10:55 Fentanyl 50 mcg Versed 1 mg [facility] [place] [address] INVASIVE PROCEDURE REPORT Name: ELIZA LOERA Room #: [facility] Nitesh#: [id number] Admission: 11/05/20 Attend Phys: Jose Reyes, Discharge: Date of : 39 Report #: [id number] Fluoro Time: 21.10 minutes Dose: DAP 05439.30 cGycm2 1951 mGy Contrast Type and Amount: Omnipaque 250 ml Hemodynamics The aortic pressure is 120/51 mmHg with a mean of 48 mmHg. The left ventricular pressure is 140/-5 mmHg with a mean of mmHg. The left ventricular end diastolic pressure is 20 mmHg. Conclusion #1. Normal left ventricular size and inferior base is severely hypokinetic EF 50% range. 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 #4 SHAIKH to LAD is widely patent brisk flow there is a jump graft to what I appears to be a diagonal system there is a 50% lesion in the LAD after the anastomosis of the SHAIKH. There is collateral filling to the PDA via the septal perforating system. 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 Filling what appears to be a moderate disease and relatively small circumflex OM system. Recommendations and plan: Continue aggressive risk factor modification. No clear indication for coronary intervention. Would treat him medically. Multiple catheters were tented to cannulate the ARVIN flush injection was adequate although difficult to see distal vasculature. <ELECTRONICALLY SIGNED> By: Jose Reyes MD, [facility] 11/05/20 1141 1141 1141 Jose Reyes MD, FACC /INF
--- NOTE | 2020-11-05 15:35 | EKG ---
[place] [address] [facility] [place] [address] ELECTROCARDIOGRAM REPORT Name: EVARISTOELIZA L Room #: [facility]#: [id number] Admission: 11/05/20 Attend Phys: Jose Reyes MD, Discharge: Date of : 39 Report #: [id number] [facility] Test Date: 2020-11-05 Test Time: 08:43:47 Pat Name: ELIZAYOHANNES LOERA Department: Room: Gender: Bingo Cashier: SBUL : 1935 Requested By: Jose Reyes Order Number: [id number] : Nithin Montoya Measurements Intervals [place] Rate: 60 P: 13 IN: 258 QRS: 10 QRSD: 110 T: 28 QT: 451 QTc: 451 Interpretive Statements Sinus rhythm Prolonged IN interval Compared to ECG 05/29/2020 08:45:48 T-wave abnormality no longer present Electronically Signed On 11-05-2020 15:35:30 WASTE MANAGEMENT SPECIALIST by Nithin Montoya [email or web address] <ELECTRONICALLY SIGNED> By: Nithin Montoya MD, [facility] 11/05/20 1535 0843 0843 Nithin Montoya MD, FACC /EPI
== END | disposition home or self-care (01) ==
LOC: CATH 07:57
PROVIDERS: ATTEND Internal Medicine Cardiovascular Disease
DX: R94.39 Abnormal result of other cardiovascular function study (principal); I25.810 Atherosclerosis of coronary artery bypass graft(s) without angina pectoris; I10 Essential (primary) hypertension; E11.9 Type 2 diabetes mellitus without complications; E78.5 Hyperlipidemia, unspecified; I25.2 Old myocardial infarction; Z82.49 Family history of ischemic heart disease and other diseases of the circulatory system; Z98.890 Other specified postprocedural states; Z79.899 Other long term (current) drug therapy; Z95.1 Presence of aortocoronary bypass graft; Z79.4 Long term (current) use of insulin

== ENCOUNTER → 2021-05-14 | Outpatient (CLI) | payer OTHER, BC | LOC: SJCVC 15:15 | PROVIDERS: ATTEND Internal Medicine Cardiovascular Disease | DX: R94.31 Abnormal electrocardiogram [ECG] [EKG] (principal); I44.0 Atrioventricular block, first degree; I25.708 Atherosclerosis of coronary artery bypass graft(s), unspecified, with other forms of angina pectoris; I10 Essential (primary) hypertension; E78.00 Pure hypercholesterolemia, unspecified; R06.00 Dyspnea, unspecified; I87.2 Venous insufficiency (chronic) (peripheral); E11.9 Type 2 diabetes mellitus without complications; I65.23 Occlusion and stenosis of bilateral carotid arteries; R60.9 Edema, unspecified; R07.9 Chest pain, unspecified; Z79.4 Long term (current) use of insulin; Z95.1 Presence of aortocoronary bypass graft; Z87.891 Personal history of nicotine dependence; Z79.82 Long term (current) use of aspirin; Z79.899 Other long term (current) drug therapy ==

== ENCOUNTER → 2021-08-20 | Outpatient (CLI) | payer OTHER, BC | LOC: SJCVCIMAG 07:39 | PROVIDERS: ATTEND Internal Medicine Cardiovascular Disease | DX: I25.89 Other forms of chronic ischemic heart disease (principal); I25.708 Atherosclerosis of coronary artery bypass graft(s), unspecified, with other forms of angina pectoris; I10 Essential (primary) hypertension; E78.00 Pure hypercholesterolemia, unspecified; I65.23 Occlusion and stenosis of bilateral carotid arteries; R60.9 Edema, unspecified; R07.9 Chest pain, unspecified; I87.2 Venous insufficiency (chronic) (peripheral); Z95.1 Presence of aortocoronary bypass graft; Z79.4 Long term (current) use of insulin; Z72.89 Other problems related to lifestyle; Z79.899 Other long term (current) drug therapy; Z87.891 Personal history of nicotine dependence ==

== ENCOUNTER 2021-11-21 13:27 | Inpatient (IN) | payer OTHER, BC ==
[~2021-11-21] VITALS: Ht 172.7 cm; Wt 99.8 kg
[~2021-11-21 13:27] MED LIST changes: -GLUCOPHAGE1000 MG PO; +METFORMIN HCL500 MG PO
[2021-11-21 14:10] VITALS: BP 164/78
[2021-11-21 14:38] LABS: HEMOGLOBIN 10.9 gm/dL (14.0-18.0)
[2021-11-21 14:40] LABS: MCH 30.8 pg (26.0-34.0); MCHC 33.1 g/dL (28.0-37.0); MCV 93.1 fL (80.0-100.0); PLATELET COUNT 127 thou/uL (150-400); RBC 3.55 mil/uL (4.50-6.00); WBC 24.8 thou/uL (4.0-11.0)
[2021-11-21 14:54] LABS: CALCIUM 8.4 mg/dL (8.5-10.1); CREATININE 1.3 mg/dL (0.7-1.3); POTASSIUM 4.5 mmol/L (3.5-5.1)
[2021-11-21 15:04] LABS: ALBUMIN 2.6 g/dL (3.4-5.0); APTT 30.4 Seconds (24.5-32.8); INR 1.09; MAGNESIUM 1.8 mg/dL (1.8-2.4); PROTIME 11.8 Seconds (10.5-12.1); TOTAL BILIRUBIN 0.7 mg/dL (0.2-1.0); TOTAL PROTEIN 6.1 g/dL (6.4-8.2)
[2021-11-21 15:37] LABS: ABSOLUTE NEUTROPHILS 0.7 thou/uL (1.4-8.2)
[2021-11-21 15:41] LABS: % SATURATION 11 % (20-39); IRON 28 ug/dL (65-175); TIBC 245 ug/dL (250-450)
[2021-11-21 16:54] LABS: URINE BILIRUBIN NEGATIVE (Negative); URINE BLOOD 3+ (Negative); URINE CLARITY CLOUDY; URINE GLUCOSE-RANDOM* NEGATIVE (Negative); URINE KETONES NEGATIVE (Negative); URINE NITRITE-REFLEX NEGATIVE (Negative); URINE PROTEIN (DIPSTICK) 2+ (Negative)
[2021-11-21 17:07] LABS: URINE COLOR YELLOW; URINE LEUKOCYTES-REFLEX 3+ (Negative)
[2021-11-21 17:15] LABS: SQUAMOUS None Seen /LPF (0-3); URINE WBC-REFLEX >25 Many /HPF (0-5)
[2021-11-21 17:16] LABS: BACTERIA-REFLEX 1-9 Few /HPF (None Seen); CASTS None Seen /LPF (None Seen); CRYSTALS None Seen /LPF (None Seen); URINE RBC 1-2 Rare /HPF (NONE SEEN); WBC CLUMPS Few (None Seen)
[2021-11-21] MEDS ORDERED: NORVASC5 MG PO (19:56)
[2021-11-21] MEDS ORDERED: LIPITOR80 MG PO (19:56)
[2021-11-21] MEDS ORDERED: FOLIC ACID1 MG PO (19:57)
[2021-11-21] MEDS ORDERED: PROTONIX40 M4 PO (19:59)
[2021-11-22 05:05] LABS: HEMATOCRIT 33.2 % (42.0-52.0); HEMOGLOBIN 10.9 gm/dL (14.0-18.0); MCH 30.5 pg (26.0-34.0); MCHC 32.7 g/dL (28.0-37.0); MCV 93.3 fL (80.0-100.0); RBC 3.56 mil/uL (4.50-6.00); RDW 15.8 % (10.5-14.5); WBC 23.2 thou/uL (4.0-11.0)
[2021-11-22 05:19] LABS: CALCIUM 8.4 mg/dL (8.5-10.1); CREATININE 1.2 mg/dL (0.7-1.3); POTASSIUM 4.9 mmol/L (3.5-5.1)
[2021-11-22 05:23] LABS: ALBUMIN 2.3 g/dL (3.4-5.0); PHOSPHORUS 3.1 mg/dL (2.5-4.9)
--- NOTE | 2021-11-22 09:48 | EKG ---
[facility] [place] [address] ELECTROCARDIOGRAM REPORT Name: ELIZA LOERA Nani Room #: 170-5 ADM IN .R.#: [id number] Admission: 11/21/21 Attend Phys: Neto Jalloh Discharge: Date of : 39 Report #: [id number] [facility] ED Test Date: 2021-11-21 Test Time: 14:19:42 Pat Name: ELIZA LOERA Department: Room: 170 Gender: M Manager Hris: Bashir eddy : 1935 Requested By: Davina Marquez Order Number: [id number] MD: Delfin Everett Measurements Intervals [place] Rate: 70 P: 0 AK: 158 QRS: 9 QRSD: 107 T: 9 QT: 415 QTc: 448 Interpretive Statements Probable sinus rhythm. Artifact limits rhythm interpretation Atrial premature complexes Poor R wave progression Baseline wander in lead(s) V2 Compared to ECG 11/05/2020 08:43:47 Atrial premature complex(es) now present Electronically Signed On 11-22-2021 9:48:27 GOLF CART MECHANIC by Delfin Everett [email or web address] <ELECTRONICALLY SIGNED> By: Delfin Everett MD, [facility] 11/22/21 0948 1419 1419 Delfin Everett MD, [facility] /EPI
--- NOTE | 2021-11-22 10:26 | NUR ---
UNABLE TO AMEND ORDER FOR UROLOGY, UROLOGY CONSULT CALLED @9407
[2021-11-22 13:29] VITALS: BP 164/82
--- NOTE | 2021-11-22 13:51 | NUR ---
DR TAM, UROLOGY CALLS AND STATES THEY WANT A CT, ABD PELVIS, WITH CONTRAST TO BE ORDERED FOR TOMORROW AM
[2021-11-22 22:54] VITALS: BP 137/63
--- NOTE | 2021-11-22 23:43 | NUR ---
PT GIVEN BEDTIME SNACK WITH HIS HS INSULIN.
--- NOTE | 2021-11-23 05:28 | NUR ---
PLACED PT ON 2L NC DURING THE NIGHT HE HAD SOME PERIODS OF SLEEP APNEA AND SPO2 85-90% WHILE SLEEPING. AFEBRILE. VSS. UP W/ SBA TO BTR TO VOID. PT ANXIOUS AT TIMES ABOUT HIS HEALTH CONDITION. EDUCATION PROVIDED. WILL MONITOR FURTHER.
[2021-11-23 08:40] VITALS: BP 132/66
[2021-11-23] MEDS ORDERED: IMBRUVICA140 MG PO (13:43)
[2021-11-23] MEDS ORDERED: AAA-MED REC COMPLETE PO (13:46)
[2021-11-23 18:30] VITALS: BP 136/70
[2021-11-23 19:42] VITALS: BP 137/70
[2021-11-24 05:46] LABS: ALBUMIN 2.3 g/dL (3.4-5.0); CALCIUM 8.3 mg/dL (8.5-10.1); CREATININE 1.1 mg/dL (0.7-1.3); PHOSPHORUS 4.3 mg/dL (2.5-4.9); POTASSIUM 3.9 mmol/L (3.5-5.1)
--- NOTE | 2021-11-24 05:50 | NUR ---
RECEIVED CARE OF THIS PATIENT AT 1900. PATIENT ALERT AND ORIENTED X4. PATIENT ANXIOUS ABOUT CARE AND MEDS. STATES HIS MEDS ARE ALL MESSED UP. HE IS NOT GETTING THEM HE WAS TAKING THEM AT HOME. DENIES PAIN. SLEPT MOST OF NIGHT.
[2021-11-24 06:56] LABS: HEMATOCRIT 35.7 % (42.0-52.0); HEMOGLOBIN 11.5 gm/dL (14.0-18.0); MCH 30.3 pg (26.0-34.0); MCHC 32.3 g/dL (28.0-37.0); MCV 93.9 fL (80.0-100.0); RBC 3.8 mil/uL (4.50-6.00); RDW 16.1 % (10.5-14.5); WBC 36.4 thou/uL (4.0-11.0)
[2021-11-24 07:26] VITALS: BP 135/65
--- NOTE | 2021-11-24 10:13 | NUR ---
ASSUMED PT CARE THIS AM. PT IS ALERT & ORIENTED X4. PT HAS IV SITES ON L HAND AND RAC SALINE LOCKED. PT IS ON ROOM AIR. PT TOLERATED DIET AND MEDICATION WELL. INFORMED HOSPITALIST TO RESUME HOME MEDS THAT PT BROUGHT IN. PT IS ACCUCHECK ACHS. NO C/O OF PAIN, NAUSEA AND VOMITING. PT AT THE BEDSIDE. WILL CONTINUE TO MONITOR PT. FOLLOW POC.
--- NOTE | 2021-11-24 11:42 | NUR ---
ORDERS RECEIVED FOR EVAL AND TREAT. OBSERVED Pt STAND AND AMBULATE TO THE BATHROOM WITHOUT DIFFICULTY. SPOKE WITH Pt WHO STATES HE FEELS MUCH BETTER AND DOES NOT FEEL WEAK OR OFF BALANCE. Pt IS DECLINING A FORMAL P.T. EVAL BUT APPEARS SAFE UP AD PAWEL AND SAFE FOR HOME WHEN MEDICALLY CLEAR
[2021-11-24 18:10] VITALS: BP 107/56
[2021-11-24 19:37] VITALS: BP 121/68
--- NOTE | 2021-11-25 02:28 | NUR ---
PT IS A/O X4 AND IS UP AD PAWEL. VSS. MEDICATIONS GIVEN DIRECTED. PT IS PLEASANT AND COOPERATIVE. PROGRESSING TOWARDS PLAN OF CARE DC GOALS. FALL PRECUATIONS IN PLACE, CALL LIGHT IS WITHIN REACH.
[2021-11-25 06:17] LABS: ALBUMIN 2.4 g/dL (3.4-5.0); CALCIUM 8.3 mg/dL (8.5-10.1); CREATININE 1.4 mg/dL (0.7-1.3); PHOSPHORUS 4.1 mg/dL (2.5-4.9); POTASSIUM 4.1 mmol/L (3.5-5.1)
[2021-11-25 07:43] VITALS: BP 136/56
[2021-11-25] MEDS ORDERED: AUGMENTIN 875-1 EACH PO (10:00)
--- NOTE | 2021-11-25 10:31 | NUR ---
ASSUMED PT CARE THIS AM. PT IS ALERT & ORIENTED X4. PT HAS IV SITES ON L HAND AND RAC SALINE LOCKED. PT IS UP AD PAWEL. PT IS ON ROOM AIR. LAST BM WAS TODAY. PT TOLERATED MEDICATION AND DIET WELL. NO C/O OF PAIN, NAUSEA AND VOMITING. PT ON THE BED WATCHING TV, BED ON THE LOWEST POSITION, SIDE RAILS UP, CALL LIGHT WITHIN REACH. WILL CONTINUE TO MONITOR PT. FOLLOW POC.
--- NOTE | 2021-11-25 11:09 | NUR ---
INITIAL ASSESSMENT/DISCHARGE NOTE: SW reviewed chart and spoke with nursing and attending physician. Pt was admitted from home due to sepsis. Pt is medically stable for discharge home today. Recommendation made for pt to have HH. SW met with pt at bedside. Introduced role of SW. Pt is alert/orientated x 4. Pt reports he lives with his in an apt at [facility] in [place]. Prior to admission, pt was independent with ADLs. Pt states he has DME if needed. No hx of HH or post-acute placement. Pt's PCP is Dr. Damion Castillo and also Dr. Piper Nogueira at the [facility]. SW discussed HH services. Pt states he does not feel that he needs HH at this time. Pt's to provide transportation home this afternoon around 1530. SW notified attending physician that pt declined HH services. SW updated pt's nurse. No additional SW needs identified at this time. SW is available to assist should needs arise.
[2021-11-25 11:36] VITALS: BP 136/56
== END 2021-11-25 15:10 | disposition home health service (06) | DRG 871 ==
LOC: ER 13:27 → EROBS 18:11 → 4S 18:11 → EROBS 11-22 21:03 → 4S 11-23 17:12
PROVIDERS: Nurse Practitioner Family; ADMIT Hospitalist; ATTEND Hospitalist
DX: A41.9 Sepsis, unspecified organism (principal); J96.90 Respiratory failure, unspecified, unspecified whether with hypoxia or hypercapnia; N12 Tubulo-interstitial nephritis, not specified as acute or chronic; C91.10 Chronic lymphocytic leukemia of B-cell type not having achieved remission; D69.6 Thrombocytopenia, unspecified; D50.9 Iron deficiency anemia, unspecified; E11.9 Type 2 diabetes mellitus without complications; I25.10 Atherosclerotic heart disease of native coronary artery without angina pectoris; Z20.822 Contact with and (suspected) exposure to COVID-19; I50.9 Heart failure, unspecified; I11.0 Hypertensive heart disease with heart failure; B96.5 Pseudomonas (aeruginosa) (mallei) (pseudomallei) as the cause of diseases classified elsewhere; Q63.1 Lobulated, fused and horseshoe kidney; Z79.899 Other long term (current) drug therapy; Z95.1 Presence of aortocoronary bypass graft; Z82.49 Family history of ischemic heart disease and other diseases of the circulatory system; Z79.82 Long term (current) use of aspirin
CPT/HCPCS: 10195